=== PATIENT | female | born 1960 | race Caucasian/White ===

== ENCOUNTER → 2017-01-30 | Outpatient (CLI) | payer BC | LOC: SBRMNEURO 20:00 | PROVIDERS: ATTEND Psychiatry & Neurology Sleep Medicine | DX: G47.33 Obstructive sleep apnea (adult) (pediatric) (principal); G47.39 Other sleep apnea ==

== ENCOUNTER → 2017-05-14 | Outpatient (CLI) | payer BC | LOC: FIMAGING 13:37 | PROVIDERS: ATTEND Obstetrics & Gynecology | DX: Z80.41 Family history of malignant neoplasm of ovary (principal) ==

== ENCOUNTER → 2017-06-24 | Outpatient (CLI) | payer BC | LOC: FIMAGING 11:24 | PROVIDERS: ATTEND Obstetrics & Gynecology | DX: Z13.820 Encounter for screening for osteoporosis (principal); M85.80 Other specified disorders of bone density and structure, unspecified site; E05.00 Thyrotoxicosis with diffuse goiter without thyrotoxic crisis or storm; Z78.0 Asymptomatic menopausal state ==

== ENCOUNTER → 2019-01-08 | Outpatient (CLI) | payer BC | LOC: FIMAGING 08:46 ==